=== PATIENT | female | born 1980 | race Caucasian/White ===

== ENCOUNTER 2018-03-20 19:37 | Emergency (ER) | payer BC ==
[~2018-03-20] VITALS: Ht 160 cm; Wt 70.8 kg
[~2018-03-20 19:37] MED LIST: DOXY100T; OXYC-360
[2018-03-20 19:43] VITALS: BP 109/80; PULSE 90; RESP 18; TEMP 97.7; O2SAT 100
[2018-03-20] MEDS ORDERED: PRED10 PO (20:00)
[2018-03-20] MEDS ORDERED: LEVO500T8 PO (20:00)
[2018-03-20] MEDS ORDERED: MIRA3350 PO (20:02)
[2018-03-20] MEDS ORDERED: ALLE12TA2 PO (20:02)
--- NOTE | 2018-03-20 20:12 | PD ---
HPI Chief Complaint: GI Complaint Time Seen by Provider: 19:55 Travel History International Travel<30 days: No Contact w/Intl Traveler<30days: No Traveled to known affect area: No History of Present Illness HPI 38-year-old female complains of coughing congestion fever generalized malaise and weakness dizziness and nausea vomiting and diarrhea. Patient states that she started having coughing congestion and fever 2 weeks ago. Patient states that she has increasing generalized malaise and weakness for the past 2 weeks. Patient states the cough is persistent and dry cough. Patient complain right ear pressure. Patient was seen a local walk-in clinic last week. Patient was given prescription for Z-Antony. Patient took the Z-Antony as directed without relief of the symptoms. Patient was seen by personal physician this morning. Patient was given prescription for Levaquin and prednisone. Patient states that she has nausea vomiting and diarrhea after taking the medications. Patient also complains of dizziness and vertigo. Patient has history recurrent vertigo. Patient states that the dizziness is worse with head movement. Patient states that the vertigo is worse today. Patient states that she has 101 fever intermittently for the past 2 weeks. Patient complains of shortness of breath also. Patient denies any headache. Patient denies any neck pain. Patient denies any chest pain. Patient denies abdominal pain. Patient denies any dysuria or frequency. Patient denies any vaginal discharge or bleeding. Patient denies any chance of being . PFSH Past Medical History Depression: Yes Diminished Hearing: No Tetanus Vaccination: Unknown Influenza Vaccination: No ?: Not LMP: IUD IN PLACE : 2 Para: 2 Past Surgical History Abdominal Surgery: Yes (LAPAROSCOPY FOR ADHESIONS) Section: Yes (2) Ear Surgery: Yes (MASTOIDECTOMY LT) Other Surgery: Yes (BREAST AUGMENTATION) Social History Alcohol Use: Yes (SOCIALLY) Tobacco Use: No Substance Use: No Allergies-Medications (Allergen,Severity, Reaction): Coded Allergies: aspirin (Verified Allergy, Severe, Anaphylaxis, 03/20/18) naproxen (Verified Allergy, Severe, Anaphylaxis, 03/20/18) zolpidem (Unverified Allergy, Severe, NAUSEA & VOMITTING, 03/20/18) Reported Meds & Prescriptions Reported Meds & Active Scripts Active Reported Miralax Powder (Polyethylene Glycol 3350 Powder) 17 Gm Powd 17 Gm PO DAILY Mix and dissolve one measuring cap-ful (17 grams) in water or juice. Lizzette-D 12 Hour Allergy (Fexofenadine-Pseudoephedrine ER 12 HR) 60-120 Mg Andrew 1 Tab PO BID Levofloxacin 500 Mg Tablet 500 Mg PO DAILY Prednisone 10 Mg Tab 10 Mg PO DAILY Review of Systems General / Constitutional: No: Fever Eyes: No: Visual changes HENT: Positive: Vertigo, Lightheadedness, No: Headaches Cardiovascular: No: Chest Pain or Discomfort Respiratory: Positive: Cough, No: Shortness of Breath Gastrointestinal: Positive: Nausea, Vomiting, Diarrhea, No: Abdominal Pain Genitourinary: No: Dysuria Musculoskeletal: No: Pain Skin: No Rash Neurologic: No: Weakness Psychiatric: No: Depression Endocrine: No: Polydipsia Hematologic/Lymphatic: No: Easy Bruising Physical Exam Narrative GENERAL: Well-nourished, well-developed patient. SKIN: Focused skin assessment warm/dry. HEAD: Normocephalic. EYES: No scleral icterus. No injection or drainage. TM: Clear. Scarring left TM. Throat: Nonerythematous. NECK: Supple, trachea midline. No JVD or lymphadenopathy. No meningismus CARDIOVASCULAR: Regular rate and rhythm without murmurs, gallops, or rubs. RESPIRATORY: Breath sounds equal bilaterally. No accessory muscle use. GASTROINTESTINAL: Abdomen soft, non-tender, nondistended. MUSCULOSKELETAL: No cyanosis, or edema. BACK: Nontender without obvious deformity. No CVA tenderness. Neurologic exam normal. Data Data Last Documented VS Vital Signs Date Time Temp Pulse Resp B/P (MAP) Pulse Ox O2 Delivery O2 Flow Rate FiO2 03/20/18 20:26 84 20 126/75 (92) 98 03/20/18 19:43 97.7 Orders Orders Sodium Chlor 0.9% 1000 Ml Inj (Ns 1000 M (03/20/18 20:15) Ondansetron Inj (Zofran Inj) (03/20/18 20:15) Meclizine (Antivert) (03/20/18 20:15) Complete Blood Count With Diff (03/20/18 20:04) Comprehensive Metabolic Panel (03/20/18 20:04) Lipase (03/20/18 20:04) Urinalysis - C+S If Indicated (03/20/18 20:04) Influenzae A/B Antigen (03/20/18 20:04) Chest, Single Ap (03/20/18 20:04) Iv Access Insert/Monitor (03/20/18 20:04) Ecg Monitoring (03/20/18 20:04) Oximetry (03/20/18 20:04) Labs Laboratory Tests Test 03/20/18 20:20 03/20/18 21:00 White Blood Count 12.8 TH/MM3 Red Blood Count 4.40 MIL/MM3 Hemoglobin 13.8 GM/DL Hematocrit 40.6 % Mean Corpuscular Volume 92.4 FL Mean Corpuscular Hemoglobin 31.4 PG Mean Corpuscular Hemoglobin Concent 34.0 % Red Cell Distribution Width 11.3 % Platelet Count 475 TH/MM3 Mean Platelet Volume 8.3 FL Neutrophils (%) (Auto) 87.5 % Lymphocytes (%) (Auto) 9.8 % Monocytes (%) (Auto) 1.8 % Eosinophils (%) (Auto) 0.2 % Basophils (%) (Auto) 0.7 % Neutrophils # (Auto) 11.2 TH/MM3 Lymphocytes # (Auto) 1.3 TH/MM3 Monocytes # (Auto) 0.2 TH/MM3 Eosinophils # (Auto) 0.0 TH/MM3 Basophils # (Auto) 0.1 TH/MM3 CBC Comment DIFF FINAL Differential Comment Blood Urea Nitrogen 7 MG/DL Creatinine 0.88 MG/DL Random Glucose 115 MG/DL Total Protein 7.7 GM/DL Albumin 4.0 GM/DL Calcium Level 8.9 MG/DL Alkaline Phosphatase 72 U/L Aspartate Amino Transf (AST/SGOT) 19 U/L Alanine Aminotransferase (ALT/SGPT) 44 U/L Total Bilirubin 0.7 MG/DL Sodium Level 132 MEQ/L Potassium Level 3.9 MEQ/L Chloride Level 101 MEQ/L Carbon Dioxide Level 20.3 MEQ/L Anion Gap 11 MEQ/L Estimat Glomerular Filtration Rate 72 ML/MIN Lipase 118 U/L Urine Color YELLOW Urine Turbidity CLEAR Urine pH 7.0 Urine Specific [place] 1.010 Urine Protein NEG mg/dL Urine Glucose (UA) NEG mg/dL Urine Ketones NEG mg/dL Urine Occult Blood NEG Urine Nitrite NEG Urine Bilirubin NEG Urine Urobilinogen 0.2 MG/DL Urine Leukocyte Esterase NEG MDM Medical Decision Making Medical Screen Exam Complete: Yes Emergency Medical Condition: Yes Interpretation(s) 2048 PM. CBC WBC 12.8. Hemoglobin 13 point hematocrit 40.6. Platelet 475. 87 neutrophil. Sodium 132. Bicarb 20.3. GFR 72. Influenza AB antigen negative. 21:17 PM. Chest x-ray shows no acute consolidation. Differential Diagnosis Differential diagnosis including viral syndrome, vertigo, dehydration, electrolyte imbalance, bronchitis, pneumonia, sepsis. Narrative Course 38-year-old female with dizziness, right ear stuffiness, coughing congestion, nausea vomiting diarrhea, generalized malaise and weakness. Normal saline solution 1 L IV bolus. Zofran 4 mg IV. Meclizine 25 mg p.o. Diagnosis Primary Impression: Acute viral syndrome Additional Impression: Vertigo Patient Instructions: General Instructions Additional Instructions: Stop prednisone and Levaquin. Doxycycline as directed. Tylenol for fever. Zofran as needed for nausea vomiting. [id number] Imodium as needed for diarrhea. Meclizine as needed for dizziness. Follow-up with personal physician. Return if persistent problem or worse. Med/Other Pt SpecificInfo: Prescription(s) given Scripts Benzonatate (Tessalon Perles) 100 Mg Cap 200 MG PO TID Y for COUGH, #30 CAP 0 Refills Prov: Yasmani Handy MD 03/20/18 Ondansetron Odt (Zofran Odt) 4 Mg Tab 4 MG SL Q6HR Y for Nausea/Vomiting, #12 TAB 0 Refills Prov: Yasmani Handy MD 03/20/18 Doxycycline Hyclate (Doxycycline Hyclate) 100 Mg Cap 100 MG PO BID for Infection, #20 CAP 0 Refills Prov: Yasmani Handy MD 03/20/18 Meclizine (Meclizine) 25 Mg Tab 25 MG PO TID Y for VERTIGO, #21 TAB 0 Refills Prov: Yasmani Handy MD 03/20/18 Disposition: 01 DISCHARGE HOME Condition: Stable Yasmani Handy MD Mar 20, 2018 20:12
[2018-03-20] MEDS ORDERED: SODIUM CHLOR 0.9% 1000 ML INJ 1,000 ML IV ONE (20:15)
[2018-03-20] MEDS ORDERED: MECLIZINE HCL 25 MG TAB PO ONE (20:15)
[2018-03-20] MEDS ORDERED: ONDANSETRON HCL 4 MG/2 ML VIAL IV PUSH ONE (20:15)
[2018-03-20 20:26] VITALS: BP 126/75; PULSE 84; RESP 20; O2SAT 98
[2018-03-20 20:31] LABS: AUTOMATED NEUTROPHIL # 11.2 TH/MM3 (1.8-7.7); BASOPHIL # 0.1 TH/MM3 (0-0.2); BASOPHIL % 0.7 % (0.0-2.0); EOSINOPHIL % 0.2 % (0.0-4.0); HEMATOCRIT 40.6 % (35.0-46.0); HEMOGLOBIN 13.8 GM/DL (11.6-15.3); LYMPH % 9.8 % (9.0-44.0); LYMPHOCYTE # 1.3 TH/MM3 (1.0-4.8); MEAN CELL VOLUME 92.4 FL (80.0-100.0); MEAN CORPUSCULAR HEMOGLOBIN 31.4 PG (27.0-34.0); MEAN PLATELET VOLUME 8.3 FL (7.0-11.0); MONO % 1.8 % (0.0-8.0); MONOCYTE # 0.2 TH/MM3 (0-0.9); NEUT % 87.5 % (16.0-70.0); PLATELET COUNT 475 TH/MM3 (150-450); RED CELL DISTRIBUTION WIDTH 11.3 % (11.6-17.2); WHITE BLOOD COUNT 12.8 TH/MM3 (4.0-11.0)
[2018-03-20 20:38] LABS: CHLORIDE 101 MEQ/L (98-107); SODIUM (NA) 132 MEQ/L (136-145)
[2018-03-20 20:41] LABS: CALCIUM 8.9 MG/DL (8.5-10.1)
[2018-03-20 20:42] LABS: BICARBONATE 20.3 MEQ/L (21.0-32.0); BLOOD UREA NITROGEN 7 MG/DL (7-18); GLUCOSE,RANDOM 115 MG/DL (74-106)
[2018-03-20 20:45] LABS: ALT (GPT) 44 U/L (10-53); AST (GOT) 19 U/L (15-37); CREATININE 0.88 MG/DL (0.50-1.00); GLOMERULAR FILTRATION RATE 72 ML/MIN (>89)
[2018-03-20 20:47] LABS: TOTAL BILIRUBIN ADULT 0.7 MG/DL (0.2-1.0); TOTAL PROTEIN 7.7 GM/DL (6.4-8.2)
[2018-03-20 20:48] LABS: ALKALINE PHOSPHATASE 72 U/L (45-117)
[2018-03-20 21:12] LABS: BILIRUBIN, URINE NEG (NEG); BLOOD, URINE NEG (NEG); GLUCOSE,URINE NEG (NEG); KETONE, URINE NEG (NEG); NITRITE,URINE NEG (NEG); URINE COLOR YELLOW (YELLW/STRAW); URINE LEUKOCYTE ESTERASE NEG (NEG)
--- NOTE | 2018-03-20 21:12 | RADRPT ---
EXAM DATE: 03/20/2018 8:56 PM EDT AGE/SEX: 38 years / Female INDICATIONS: Shortness of breath and productive cough for two weeks. CLINICAL DATA: This is the patient's initial encounter. Patient reports that signs and symptoms have been present for 2 weeks and indicates a pain score of 0/10. MEDICAL/SURGICAL HISTORY: None. Breast augmentation. COMPARISON: No prior exams available for comparison. FINDINGS: Portable AP view of the chest demonstrates a normal-sized cardiac silhouette. The lungs demonstrate n o definite effusion, consolidation, or pneumothorax. The bones and soft tissues demonstrate no acute finding. Azygos fissure is present. EKG lines overlie the patient. Clips overlie the right supraclavi cular region. CONCLUSION: No acute cardiopulmonary abnormality is identified. Electronically signed by: Pedro June MD 03/20/2018 9:11 PM EDT
[2018-03-20 21:17] LABS: RBC, URINE 0-3 /hpf (0-3); SQUAMOUS EPITHELIAL CELL URINE 0-5 /hpf (0-5); WBC, URINE 0-2 /hpf (0-5)
[2018-03-20 21:25] VITALS: BP 104/75; PULSE 79; RESP 20; O2SAT 98
[2018-03-20] MEDS ORDERED: DOXY100C PO (21:31)
[2018-03-20] MEDS ORDERED: BENZ100 PO (21:31)
[2018-03-20] MEDS ORDERED: MECL-62 PO (21:31)
[2018-03-20] MEDS ORDERED: ZOFR4TAB3 SL (21:31)
[2018-03-20 21:54] VITALS: BP 116/67
== END 2018-03-20 21:58 | disposition home or self-care (01) ==
LOC: PHED 19:37
DX: B34.9 Viral infection, unspecified (principal); R50.9 Fever, unspecified; R11.2 Nausea with vomiting, unspecified; R19.7 Diarrhea, unspecified; R42 Dizziness and giddiness; R53.1 Weakness; R06.02 Shortness of breath; R05 Cough; F32.9 Major depressive disorder, single episode, unspecified
CPT/HCPCS: 71045; 80053; 81001; 83690; 85025; 87804; 96374; 99284; J2405; J7030